=== PATIENT | male | born 1995 | race Two or more races ===

== ENCOUNTER 2021-05-13 14:46 | Emergency (ER) | payer OTHER ==
[~2021-05-13] VITALS: Ht 177.8 cm; Wt 81.6 kg
[2021-05-13] MEDS ORDERED: DUI500 PO (18:25)
== END 2021-05-13 18:43 | disposition home or self-care (01) ==
LOC: ER 14:46
DX: S81.822A Laceration with foreign body, left lower leg, initial encounter (principal); W22.8XXA Striking against or struck by other objects, initial encounter; Y93.89 Activity, other specified; Y92.89 Other specified places as the place of occurrence of the external cause; Y99.8 Other external cause status